=== PATIENT | male | born 1990 | race Two or more races ===

== ENCOUNTER 2025-02-14 14:35 | Emergency (ER) | payer OTHER ==
[~2025-02-14] VITALS: Ht 182.9 cm; Wt 136.1 kg
[2025-02-14] MEDS ORDERED: METOCLOPRAMIDE HCL 5 MG/ML VIAL IM ONE (16:15)
[2025-02-14] MEDS ORDERED: 0.9 % SODIUM CHLORIDE 1,000 ML IV ONE (16:15)
[2025-02-14] MEDS ORDERED: METOCLOPRAMIDE HCL 5 MG/ML VIAL ONE (17:06)
[2025-02-14 18:33] LABS: BASO % 0.4 % (0.1-1.2); EOS # 0.03 (0.04-0.54); EOS % 0.4 % (0.7-7.0); LYMPH # 1.45 (1.18-3.74); LYMPH % 18.0 % (19.3-53.1); MEAN PLATELET VOLUME 12.00 fl (9.4-12.4); MONO # 0.42 (0.24-0.82); MONO % 5.2 % (4.7-12.5); NEUT # 6.10 (1.56-6.13); NEUT % 75.6 % (34.0-71.1); RED CELL DISTRIBUTION WIDTH 12.1 % (11.6-14.4)
[2025-02-14 19:12] LABS: BUN CREA RATIO 13.0 (7.0-25.0); CREATININE SERUM 1.1 mg/dL (0.70-1.30); GFR 76.63; GLUCOSE FASTING 106.0 mg/dL (65-100); OSMOLALITY SERUM 277.0 MOSM/KG (275-295); PHOSPHOKINASE CREATININE 429.0 U/L (39-308); TSH 0.811 uIU/mL (0.358-3.74)
== END 2025-02-14 23:14 | disposition home or self-care (01) ==
LOC: ER 14:35
PROVIDERS: General Practice
DX: R42 Dizziness and giddiness (principal)